=== PATIENT | male | born 1960 | race Caucasian/White ===

== ENCOUNTER 2020-11-19 14:04 | Emergency (ER) ==
[~2020-11-19 14:04] MED LIST: Iopamidol-370 76% 500 ML 1 ML ONE
[2020-11-19 14:39] LABS: Hemoglobin 14.4 g/dL (14.0-18.0); Mean Corpuscular HGB CONC 34.1 g/dL (32.0-36.0); Mean Corpuscular Hemoglobin 35.9 pg (27.0-31.0); Mean Platelet Volume 8.4 fL (7.4-10.4); Platelet Count 147 thou/uL (130-400); RBC Distribution Width 14.2 % (11.5-14.5); Red Blood Cell (RBC) Count 4.01 mill/uL (4.70-6.10)
[2020-11-19 14:47] LABS: ALT (SGPT) 78 U/L (8-55); AST (SGOT) 76 U/L (5-34); Albumin 3.8 g/dL (3.5-5.0); Alcohol Less than 10 mg/dL (Less than 10); Alkaline Phosphatase 191 U/L (40-110); Anion Gap 19 mmol/L (10-20); BUN (Urea Nitrogen) 16 mg/dL (8.4-25.7); Bilirubin, Total 1.7 mg/dL (0.2-1.2); Calc. Creatinine Clearance 0 mL/min (70-130); Calcium 10.3 mg/dL (7.8-10.44); Carbon Dioxide 23 mmol/L (22-29); Chloride 91 mmol/L (98-107); Globulin 3.6 g/dL (2.4-3.5); Glucose 471 mg/dL (70-105); Lipase 78 U/L (8-78); Potassium 3.7 mmol/L (3.5-5.1); Protein, Total 7.4 g/dL (6.0-8.3); Sodium 129 mmol/L (136-145)
[2020-11-19 14:56] LABS: Band 11 % (5-11); Lymphocytes 7 % (21-51); MDiff Complete? YES; Macrocytosis SLIGHT = 6-15 cells (100X) (0-5/hpf); Monocytes 9 % (0-10); Neutrophil 63 % (42-75); Nucleated RBC 2 % (0); Platelet Morphology Comment Appears Adequate; Polychromasia MODERATE = 3-4 cells (100X) (0-2/hpf); Reactive Lymphocytes 10 % (0-10); White Blood Cell (WBC) Count 4.9 thou/uL (4.8-10.8)
[2020-11-19 18:22] LABS: Bilirubin Negative (Negative); Blood, Urine Negative (Negative); Clarity Clear (Clear); Glucose, Urine (Dipstick) Greater than 1000 mg/dL (Negative); Ketone, Urine 20 mg/dL (Negative); Leukocyte Negative Leu/uL (Negative); Nitrite Negative (Negative); Protein, Urine (Dipstick) Negative (Neg-Trace); Urobilinogen Normal mg/dL (Less than 2); pH, Urine 6.5 (5.0-9.0)
[2020-11-19] MEDS ORDERED: Multivitamins, Adult 10 ML, Thiamine HCl 100 MG, Folic Acid 1 MG in Dextrose 5 %-0.45 %... IV SCH (20:00)
== END 2020-11-19 22:35 | disposition home or self-care (01) ==
LOC: ERS 14:04
DX: E11.42 Type 2 diabetes mellitus with diabetic polyneuropathy (principal); R53.1 Weakness; I10 Essential (primary) hypertension; E78.5 Hyperlipidemia, unspecified
CPT/HCPCS: 36415; 71045; 74177; 80053; 80307; 81003; 82607; 82746; 83690; 84484; 85025; 93005; 94760; 96365; 96366; J3411; J7042; Q9967

== ENCOUNTER 2020-11-22 11:00 | Inpatient (IN) | payer SELFPAY ==
[2020-11-22 11:47] LABS: Bilirubin Negative (Negative); Blood, Urine Negative (Negative); Clarity Clear (Clear); Glucose, Urine (Dipstick) Greater than 1000 mg/dL (Negative); Ketone, Urine Trace mg/dL (Negative); Leukocyte Negative Leu/uL (Negative); Nitrite Negative (Negative); Protein, Urine (Dipstick) Negative (Neg-Trace); Specific Gravity, Urine 1.038 (1.002-1.036); Urobilinogen Normal mg/dL (Less than 2)
[2020-11-22 12:15] LABS: Hemoglobin 13.9 g/dL (14.0-18.0); Mean Corpuscular HGB CONC 33.6 g/dL (32.0-36.0); Mean Corpuscular Hemoglobin 35.8 pg (27.0-31.0); Platelet Count 197 thou/uL (130-400); RBC Distribution Width 13.9 % (11.5-14.5); Red Blood Cell (RBC) Count 3.89 mill/uL (4.70-6.10); White Blood Cell (WBC) Count 4.7 thou/uL (4.8-10.8)
[2020-11-22 12:31] LABS: Band 4 % (5-11); Lymphocytes 22 % (21-51); MDiff Complete? YES; Macrocytosis SLIGHT = 6-15 cells (100X) (0-5/hpf); Monocytes 9 % (0-10); Neutrophil 62 % (42-75); Platelet Morphology Comment Appears Adequate; Polychromasia SLIGHT = 2-3 cells (100X) (0-2/hpf); Reactive Lymphocytes 1 % (0-10)
[2020-11-22 12:48] LABS: ALT (SGPT) 60 U/L (8-55); AST (SGOT) 58 U/L (5-34); Albumin 3.6 g/dL (3.5-5.0); Alkaline Phosphatase 160 U/L (40-110); Anion Gap 18 mmol/L (10-20); BUN (Urea Nitrogen) 23 mg/dL (8.4-25.7); CK (CPK) 44 U/L (30-200); Calc. Creatinine Clearance 0 mL/min (70-130); Calcium 9.9 mg/dL (7.8-10.44); Carbon Dioxide 20 mmol/L (22-29); Chloride 95 mmol/L (98-107); Globulin 3.8 g/dL (2.4-3.5); Glucose 507 mg/dL (70-105); Lipase 93 U/L (8-78); Magnesium 1.7 mg/dL (1.6-2.6); Protein, Total 7.4 g/dL (6.0-8.3); Sodium 129 mmol/L (136-145)
[2020-11-22] MEDS ORDERED: Acetaminophen 650 MG Suppository PR PRN (18:49)
[2020-11-22] MEDS ORDERED: Acetaminophen 325 MG TAB PO PRN (18:49)
[2020-11-22] MEDS ORDERED: Dextrose 5% in Water 1,000 ML IV PRN (19:08)
[2020-11-22] MEDS ORDERED: Dextrose 50% Abboject 50 ML SYRINGE SLOW IVP PRN (19:08)
[2020-11-22] MEDS ORDERED: Lorazepam 1 MG TAB PO PRN (19:27)
[2020-11-22] MEDS ORDERED: Thiamine HCl 200 MG/2 ML VIAL IM SCH (19:30)
[2020-11-22 19:50] VITALS: BMI 30.3
[2020-11-22 19:56] LABS: CRP (Inflammatory) 2.19 mg/dL (= or < 0.5)
[2020-11-22 20:14] LABS: Syphilis Antibody Nonreactive (Nonreactive); Syphilis Antibody Index 0.04 S/CO (<1.00 Non-Reactive)
[2020-11-22] MEDS: Insulin Regular 300 UNITS/3 ML VIAL SC PRN (21:51)
[2020-11-23] MEDS ORDERED: Bisacodyl 10 MG SUPP PR PRN (02:23)
[2020-11-23] MEDS ORDERED: Lorazepam 1 MG TAB PO SCH (03:33)
[2020-11-23] MEDS: Insulin Regular 300 UNITS/3 ML VIAL SC PRN ×5 (06:21→21:09)
[2020-11-23 06:48] LABS: Anion Gap 16 mmol/L (10-20); BUN (Urea Nitrogen) 16 mg/dL (8.4-25.7); Calc. Creatinine Clearance 125 mL/min (70-130); Carbon Dioxide 23 mmol/L (22-29); Chloride 100 mmol/L (98-107); Glucose 363 mg/dL (70-105); Potassium 4.1 mmol/L (3.5-5.1); Sodium 135 mmol/L (136-145)
[2020-11-23 07:29] LABS: Band 5 % (5-11); Hemoglobin 12.8 g/dL (14.0-18.0); Lymphocytes 25 % (21-51); MDiff Complete? YES; Mean Corpuscular HGB CONC 35.7 g/dL (32.0-36.0); Mean Corpuscular Hemoglobin 37.8 pg (27.0-31.0); Monocytes 9 % (0-10); Neutrophil 57 % (42-75); Platelet Count 152 thou/uL (130-400); Platelet Morphology Comment Appears Adequate; Polychromasia SLIGHT = 2-3 cells (100X) (0-2/hpf); Reactive Lymphocytes 3 % (0-10); Red Blood Cell (RBC) Count 3.38 mill/uL (4.70-6.10); White Blood Cell (WBC) Count 3.8 thou/uL (4.8-10.8)
[2020-11-23] MEDS: Thiamine 100 MG TAB PO SCH (09:01)
[2020-11-23] MEDS: Enoxaparin Sodium 40 MG/0.4 ML SYRINGE SC SCH (09:01)
[2020-11-24 05:03] LABS: Hemoglobin 13.1 g/dL (14.0-18.0); Mean Corpuscular HGB CONC 34.9 g/dL (32.0-36.0); Mean Corpuscular Hemoglobin 37.1 pg (27.0-31.0); Mean Platelet Volume 7.5 fL (7.4-10.4); Platelet Count 173 thou/uL (130-400); RBC Distribution Width 13.9 % (11.5-14.5); Red Blood Cell (RBC) Count 3.52 mill/uL (4.70-6.10); White Blood Cell (WBC) Count 3.5 thou/uL (4.8-10.8)
[2020-11-24 05:39] LABS: Hypochromia SLIGHT = 6-15 cells (100X) (0-5/hpf); Lymphocytes 54 % (21-51); MDiff Complete? YES; Macrocytosis SLIGHT = 6-15 cells (100X) (0-5/hpf); Neutrophil 46 % (42-75); Platelet Morphology Comment Appears Adequate
[2020-11-24] MEDS: Insulin Regular 300 UNITS/3 ML VIAL SC PRN ×2 (06:11→20:40)
[2020-11-24] MEDS: Enoxaparin Sodium 40 MG/0.4 ML SYRINGE SC SCH (09:03)
[2020-11-24] MEDS: Thiamine 100 MG TAB PO SCH (09:03)
[2020-11-24] MEDS ORDERED: Dextrose 50% Abboject 50 ML SYRINGE SLOW IVP PRN (09:11)
[2020-11-24] MEDS ORDERED: Dextrose 5% in Water 1,000 ML IV PRN (09:11)
[2020-11-24] MEDS: NPH, Human Insulin Isophane 300 UNIT/3 ML VIAL SC SCH ×2 (09:59→20:43)
[2020-11-24] MEDS: HumaLOG 300 UNITS/3 ML VIAL SC PRN ×2 (11:07→16:58)
[2020-11-24] MEDS ORDERED: Dexamethasone 4 MG TAB PO SCH (13:45)
[2020-11-24 14:26] LABS: Folate (Folic Acid) 14.4 ng/mL (7.0-31.4)
[2020-11-25 01:20] LABS: Albumin 3.5 g/dL (3.5-5.0)
[2020-11-25 01:21] LABS: Chloride 104 mmol/L (98-107); Potassium 3.5 mmol/L (3.5-5.1); Sodium 137 mmol/L (136-145)
[2020-11-25 01:22] LABS: Calcium 8.9 mg/dL (7.8-10.44)
[2020-11-25 01:23] LABS: Globulin 3.4 g/dL (2.4-3.5); Glucose 276 mg/dL (70-105); Protein, Total 6.9 g/dL (6.0-8.3)
[2020-11-25 01:24] LABS: Anion Gap 23 mmol/L (10-20); Carbon Dioxide 14 mmol/L (22-29)
[2020-11-25 01:25] LABS: Bilirubin, Total 1.1 mg/dL (0.2-1.2)
[2020-11-25 01:26] LABS: Alkaline Phosphatase 125 U/L (40-110); Calc. Creatinine Clearance 145 mL/min (70-130)
[2020-11-25 01:27] LABS: BUN (Urea Nitrogen) 9 mg/dL (8.4-25.7)
[2020-11-25 01:28] LABS: AST (SGOT) 43 U/L (5-34)
[2020-11-25 01:29] LABS: ALT (SGPT) 50 U/L (8-55)
[2020-11-25] MEDS: HumaLOG 300 UNITS/3 ML VIAL SC PRN ×4 (05:29→20:24)
[2020-11-25 05:30] LABS: #Lymphocytes 0.9 thou/uL (1.20-3.40); #Monocytes 0.4 thou/uL (0.11-0.59); #Neutrophils 2.3 thou/uL (1.40-6.50); %Basophils 0.4 % (0.0-1.0); %Eosinophils 0.4 % (0.0-10.0); %Lymphocytes 24.7 % (21.0-51.0); %Monocytes 11.6 % (0.0-10.0); %Neutrophils 62.9 % (42.0-75.0); Hemoglobin 13.7 g/dL (14.0-18.0); Mean Corpuscular HGB CONC 35.9 g/dL (32.0-36.0); Mean Corpuscular Hemoglobin 38.2 pg (27.0-31.0); Mean Platelet Volume 7.9 fL (7.4-10.4); Platelet Count 197 thou/uL (130-400); RBC Distribution Width 13.7 % (11.5-14.5); Red Blood Cell (RBC) Count 3.58 mill/uL (4.70-6.10); White Blood Cell (WBC) Count 3.6 thou/uL (4.8-10.8)
[2020-11-25 05:36] LABS: Hemoglobin A1c 11.3 % (4.0-6.0)
[2020-11-25 05:55] LABS: ALT (SGPT) 45 U/L (8-55); AST (SGOT) 35 U/L (5-34); Albumin 3.3 g/dL (3.5-5.0); Alkaline Phosphatase 117 U/L (40-110); Anion Gap 14 mmol/L (10-20); BUN (Urea Nitrogen) 9 mg/dL (8.4-25.7); Bilirubin, Total 0.9 mg/dL (0.2-1.2); Calc. Creatinine Clearance 154 mL/min (70-130); Calcium 9.2 mg/dL (7.8-10.44); Carbon Dioxide 21 mmol/L (22-29); Chloride 106 mmol/L (98-107); Globulin 3.3 g/dL (2.4-3.5); Glucose 313 mg/dL (70-105); Potassium 3.8 mmol/L (3.5-5.1); Protein, Total 6.6 g/dL (6.0-8.3); Sodium 137 mmol/L (136-145)
[2020-11-25] MEDS: Dexamethasone 4 MG TAB PO SCH (08:47)
[2020-11-25] MEDS: Thiamine 100 MG TAB PO SCH (08:47)
[2020-11-25] MEDS: NPH, Human Insulin Isophane 300 UNIT/3 ML VIAL SC SCH ×2 (08:47→20:24)
[2020-11-25] MEDS: Enoxaparin Sodium 40 MG/0.4 ML SYRINGE SC SCH (08:47)
[2020-11-25] MEDS ORDERED: Dextrose 50% Abboject 50 ML SYRINGE SLOW IVP PRN (09:48)
[2020-11-25] MEDS ORDERED: Dextrose 5% in Water 1,000 ML IV PRN (09:48)
[2020-11-25] MEDS: HumaLOG 300 UNITS/3 ML VIAL SC SCH ×2 (11:09→17:03)
[2020-11-26 05:32] LABS: #Lymphocytes 1.3 thou/uL (1.20-3.40); #Monocytes 0.6 thou/uL (0.11-0.59); #Neutrophils 2.4 thou/uL (1.40-6.50); %Basophils 0.8 % (0.0-1.0); %Monocytes 13.6 % (0.0-10.0); %Neutrophils 54.6 % (42.0-75.0); Hemoglobin 13.4 g/dL (14.0-18.0); Mean Corpuscular HGB CONC 34.6 g/dL (32.0-36.0); Mean Corpuscular Hemoglobin 36.7 pg (27.0-31.0); Mean Platelet Volume 7.8 fL (7.4-10.4); Platelet Count 224 thou/uL (130-400); RBC Distribution Width 13.6 % (11.5-14.5); Red Blood Cell (RBC) Count 3.65 mill/uL (4.70-6.10); White Blood Cell (WBC) Count 4.4 thou/uL (4.8-10.8)
[2020-11-26 05:56] LABS: ALT (SGPT) 42 U/L (8-55); AST (SGOT) 30 U/L (5-34); Albumin 3.4 g/dL (3.5-5.0); Alkaline Phosphatase 106 U/L (40-110); Anion Gap 16 mmol/L (10-20); BUN (Urea Nitrogen) 21 mg/dL (8.4-25.7); Bilirubin, Total 0.7 mg/dL (0.2-1.2); Calc. Creatinine Clearance 136 mL/min (70-130); Carbon Dioxide 19 mmol/L (22-29); Chloride 105 mmol/L (98-107); Globulin 3.1 g/dL (2.4-3.5); Glucose 320 mg/dL (70-105); Potassium 3.6 mmol/L (3.5-5.1); Protein, Total 6.5 g/dL (6.0-8.3); Sodium 136 mmol/L (136-145)
[2020-11-26] MEDS: Cholecalciferol 1,000 UNITS (25 MCG) TAB PO SCH (08:19)
[2020-11-26] MEDS: Enoxaparin Sodium 40 MG/0.4 ML SYRINGE SC SCH (08:19)
[2020-11-26] MEDS: Thiamine 100 MG TAB PO SCH (08:19)
[2020-11-26] MEDS: Dexamethasone 4 MG TAB PO SCH (08:20)
[2020-11-26] MEDS: HumaLOG 300 UNITS/3 ML VIAL SC SCH ×3 (08:20→17:41)
[2020-11-26] MEDS: NPH, Human Insulin Isophane 300 UNIT/3 ML VIAL SC SCH ×2 (08:20→21:03)
[2020-11-26] MEDS: HumaLOG 300 UNITS/3 ML VIAL SC PRN ×2 (12:54→17:41)
[2020-11-26] MEDS: Docusate 100 MG CAP PO PRN (21:02)
[2020-11-26] MEDS: Insulin Regular 300 UNITS/3 ML VIAL SC PRN (21:03)
[2020-11-27] MEDS: HumaLOG 300 UNITS/3 ML VIAL SC PRN ×2 (06:23→11:27)
[2020-11-27] MEDS: Dexamethasone 4 MG TAB PO SCH (09:02)
[2020-11-27] MEDS: Enoxaparin Sodium 40 MG/0.4 ML SYRINGE SC SCH (09:02)
[2020-11-27] MEDS: Cholecalciferol 1,000 UNITS (25 MCG) TAB PO SCH (09:02)
[2020-11-27] MEDS: Thiamine 100 MG TAB PO SCH (09:03)
[2020-11-27] MEDS: Docusate 100 MG CAP PO PRN (09:04)
[2020-11-27] MEDS: HumaLOG 300 UNITS/3 ML VIAL SC SCH ×2 (09:06→11:26)
[2020-11-27] MEDS: NPH, Human Insulin Isophane 300 UNIT/3 ML VIAL SC SCH (09:07)
[2020-11-27 11:52] VITALS: BP 131/89; TEMP 97.8
== END 2020-11-27 14:06 | disposition home health service (06) | DRG 52 ==
LOC: ERS 11:00 → T4-A 17:33 → 2SE 20:13
PROVIDERS: ADMIT Internal Medicine; ATTEND Internal Medicine
DX: G82.20 Paraplegia, unspecified (principal); E87.1 Hypo-osmolality and hyponatremia; T50.B95A Adverse effect of other viral vaccines, initial encounter; E11.42 Type 2 diabetes mellitus with diabetic polyneuropathy; I10 Essential (primary) hypertension; M48.00 Spinal stenosis, site unspecified; Z20.822 Contact with and (suspected) exposure to COVID-19; E78.5 Hyperlipidemia, unspecified; F10.10 Alcohol abuse, uncomplicated; E55.9 Vitamin D deficiency, unspecified; Z88.8 Allergy status to other drugs, medicaments and biological substances; Z88.0 Allergy status to penicillin; Z79.899 Other long term (current) drug therapy; Z79.84 Long term (current) use of oral hypoglycemic drugs; Z79.82 Long term (current) use of aspirin; Z91.14 Patient's other noncompliance with medication regimen
CPT/HCPCS: 36415; 36416; 70450; 72141; 72146; 72148; 80048; 80053; 81003; 82306; 82436; 82525; 82533; 82550; 82607; 82746; 83036; 83519; 83690; 83735; 83930; 83935; 84133; 84300; 84425; 84443; 84484; 85025; 85652; 86140; 86780; 93005; 94760; 94799; J1650; J1815; J3411; J8540

== ENCOUNTER 2022-08-26 15:16 | Outpatient (CLI) | payer OTHER | END 2022-08-26 15:17 | disposition home or self-care (01) | LOC: RAD 15:16 | PROVIDERS: ATTEND Specialist | DX: M48.04 Spinal stenosis, thoracic region (principal); M47.814 Spondylosis without myelopathy or radiculopathy, thoracic region | CPT/HCPCS: 72072 ==

== ENCOUNTER 2024-03-30 13:18 | Day surgery (SDC) | payer MEDICARE, OTHER ==
[2024-03-30 14:54] VITALS: TEMP 98
[2024-03-30 14:58] VITALS: BP 151/79
== END 2024-03-30 14:58 | disposition home or self-care (01) ==
LOC: ONC/OP 13:18
PROVIDERS: ATTEND Specialist
DX: E83.118 Other hemochromatosis (principal); Z88.8 Allergy status to other drugs, medicaments and biological substances; Z88.0 Allergy status to penicillin
CPT/HCPCS: 99195; G0463; 99211